=== PATIENT | female | born 1995 | race Two or more races ===

== ENCOUNTER → 2022-05-13 | Outpatient (CLI) | payer MEDICAID ==
[2022-05-13 11:20] LABS: Basophils # (auto) 0 10 ^3/uL (0-0.2); Basophils % (auto) 0.1 % (0.0-2.0); Eosinophils # (auto) 0.2 10 ^3/uL (0-0.8); Eosinophils % (auto) 2.6 % (0.0-7.0); Hemoglobin 10.9 g/dL (12.2-16.2); Lymphocytes # (auto) 1.9 10 ^3/uL (0.4-5.4); Lymphocytes % (auto) 20.9 % (10.0-50.0); Mean Corpuscular Hemoglobin 24.6 pg (28.0-32.0); Mean Corpuscular Hgb Conc. 32.1 g/dL (32.0-36.0); Mean Corpuscular Volume 76.5 fL (80.0-100.0); Monocytes # (auto) 0.4 10 ^3/uL (0-1.3); Monocytes % (auto) 4.8 % (0.0-12.0); Neutrophils # (auto) 6.4 10 ^3/uL (1.6-8.6); Neutrophils % (auto) 71.6 % (37.0-80.0); Nucleated Red Blood Cells % 0.2 %; Red Blood Cells 4.45 10^6/uL (4.0-5.20); White Blood Cell 8.9 10^3/uL (4.4-10.8)
[2022-05-14 07:06] LABS: RPR Non Reactive (Non Reactive)
== END | disposition home or self-care (01) ==
LOC: LAB 10:45
PROVIDERS: ATTEND Obstetrics & Gynecology
DX: Z34.80 Encounter for supervision of other normal pregnancy, unspecified trimester (principal)
CPT/HCPCS: 36415; 84112; 85025; 86592

== ENCOUNTER 2022-05-27 11:37 | Observation (INO) | payer MEDICAID ==
[2022-05-27 12:28] LABS: Basophils # (auto) 0 10 ^3/uL (0-0.2); Eosinophils # (auto) 0.2 10 ^3/uL (0-0.8); Hemoglobin 10.6 g/dL (12.2-16.2); Monocytes % (auto) 5.2 % (0.0-12.0); Red Cell Distribution Width 16.4 % (11.8-14.3)
[2022-05-27 12:30] LABS: Basophils % (auto) 0.2 % (0.0-2.0); Eosinophils % (auto) 2.5 % (0.0-7.0); Hematocrit 34.2 % (36.0-46.0); Lymphocytes # (auto) 1.7 10 ^3/uL (0.4-5.4); Lymphocytes % (auto) 20.1 % (10.0-50.0); Mean Corpuscular Hemoglobin 23.5 pg (28.0-32.0); Mean Corpuscular Volume 75.6 fL (80.0-100.0); Monocytes # (auto) 0.4 10 ^3/uL (0-1.3); Neutrophils # (auto) 6.2 10 ^3/uL (1.6-8.6); Nucleated Red Blood Cells % 0.1 %; Red Blood Cells 4.52 10^6/uL (4.0-5.20); White Blood Cell 8.7 10^3/uL (4.4-10.8)
[2022-05-27 12:47] LABS: Urine Bacteria MOD /hpf (None Seen); Urine Blood 3+ /uL (Negative); Urine Mucus FEW (None Seen); Urine Specific Gravity 1.029 (1.001-1.035); Urine WBC 44 /hpf (0 - 5)
[2022-05-27 12:48] LABS: Albumin 2.6 g/dL (3.4-5.0); Calcium 8.7 mg/dL (8.5-10.1); Potassium 3.9 mmol/L (3.5-5.1)
[2022-05-27 12:51] LABS: BUN/Creatinine Ratio 13.3; Bilirubin, Total 0.2 mg/dL (0.2-1.0); Total Protein 6.7 g/dL (6.4-8.2); Uric Acid 4.9 mg/dL (2.6-6.0)
[2022-05-27 13:00] LABS: Protein, Urine 42.9 mg/dL (0.0-11.9)
[2022-05-27] MEDS ORDERED: PREN-96 PO (13:21)
== END 2022-05-27 13:29 | disposition home or self-care (01) ==
LOC: LDRP 11:37
PROVIDERS: ADMIT Obstetrics & Gynecology; ATTEND Obstetrics & Gynecology
DX: O13.3 Gestational [pregnancy-induced] hypertension without significant proteinuria, third trimester (principal); Z3A.38 38 weeks gestation of pregnancy; Z79.899 Other long term (current) drug therapy
CPT/HCPCS: 36415; 59025; 80053; 81001; 81002; 82570; 84156; 84550; 85025; 94760; G0378

== ENCOUNTER 2022-05-28 06:17 | Inpatient (IN) | payer MEDICAID ==
[~2022-05-28] VITALS: Ht 157.5 cm; Wt 94.8 kg
[~2022-05-28 06:17] MED LIST: PREN-96 PO
[2022-05-28] MEDS ORDERED: BUTORPHANOL TARTRATE 2 MG/1 ML VIAL IV PRN ×2 (06:45)
[2022-05-28] MEDS ORDERED: PHISODERM TOP SOLN 240ML BTL TOP PRN (06:45)
[2022-05-28] MEDS ORDERED: WITCH HAZEL-GLYCERIN PAD TOP PRN (06:45)
[2022-05-28] MEDS ORDERED: LIDOCAINE 2%HCL (LOCAL ANESTH.) INJ 10ml MDV IJ PRN (06:45)
[2022-05-28] MEDS ORDERED: DERMOPLAST 60ML BOTTLE TOP PRN (06:45)
[2022-05-28] MEDS ORDERED: PROMETHAZINE HCL 25 MG/ML 1ML IV PRN (06:45)
[2022-05-28 07:18] LABS: Basophils # (auto) 0 10 ^3/uL (0-0.2); Eosinophils # (auto) 0.2 10 ^3/uL (0-0.8); Monocytes # (auto) 0.4 10 ^3/uL (0-1.3); Neutrophils # (auto) 5.9 10 ^3/uL (1.6-8.6)
[2022-05-28 07:20] LABS: Basophils % (auto) 0.2 % (0.0-2.0); Eosinophils % (auto) 2.8 % (0.0-7.0); Hematocrit 34.1 % (36.0-46.0); Hemoglobin 10.7 g/dL (12.2-16.2); Lymphocytes % (auto) 23.1 % (10.0-50.0); Mean Corpuscular Hemoglobin 23.8 pg (28.0-32.0); Mean Corpuscular Hgb Conc. 31.5 g/dL (32.0-36.0); Mean Corpuscular Volume 75.6 fL (80.0-100.0); Monocytes % (auto) 4.9 % (0.0-12.0); Red Blood Cells 4.51 10^6/uL (4.0-5.20); Red Cell Distribution Width 16.8 % (11.8-14.3); White Blood Cell 8.6 10^3/uL (4.4-10.8)
[2022-05-28 07:31] LABS: INR 0.91 (0.9-1.15); Partial Thromboplastin Time 28.2 sec (24.6-33.4)
[2022-05-28 07:40] LABS: Albumin 2.6 g/dL (3.4-5.0); Calcium 8.7 mg/dL (8.5-10.1); Potassium 3.7 mmol/L (3.5-5.1)
[2022-05-28] MEDS: LACTATED RINGER'S 1,000 ML IV SCH ×2 (07:40→16:17)
[2022-05-28 07:45] LABS: Bilirubin, Total 0.3 mg/dL (0.2-1.0); Total Protein 6.6 g/dL (6.4-8.2)
[2022-05-28 08:43] LABS: Urine Bacteria NONE SEEN /hpf (None Seen); Urine Blood Negative /uL (Negative); Urine Mucus FEW (None Seen); Urine Specific Gravity 1.025 (1.001-1.035); Urine WBC 16 /hpf (0 - 5)
[2022-05-28] MEDS: miSOPROStol 50 MCG per PRE-CUT 1/2 TAB PO PRN ×2 (08:49→16:28)
[2022-05-28 09:10] LABS: Alcohol, Urine < 3.0 mg/dL (0-10); Amphetamine Screen, Urine NEGATIVE (NEGATIVE); Barbiturate Scree,Urine NEGATIVE (NEGATIVE); Benzodiazephine Screen, Urine NEGATIVE (NEGATIVE); Cannabinoid Screen, Urine NEGATIVE (NEGATIVE); Cocaine Screen, Urine NEGATIVE (NEGATIVE); Opiate Scree,Urine NEGATIVE (NEGATIVE); Phencyclidine Screen, Urine NEGATIVE (NEGATIVE)
[2022-05-28] MEDS ORDERED: METHYLERGONOVINE MALEATE 0.2 MG/ML AMP IM ONE (16:45)
[2022-05-28] MEDS ORDERED: LACT. RINGERS/OXYTOCIN 20UNITS 500 ML IV ONE ×2 (16:45→17:15)
[2022-05-28] MEDS ORDERED: ceFAZolin 1GM/50ML 50 ML IV ONE (20:07)
[2022-05-28] MEDS ORDERED: TERBUTALINE SULFATE 1 MG/ML 1ML VIAL SC PRN (20:15)
[2022-05-28] MEDS ORDERED: LACT. RINGERS/OXYTOCIN 20UNITS 1,000 ML IV SCH (20:15)
[2022-05-29 07:00] VITALS: BP 141/80
[2022-05-29] MEDS ORDERED: ONDANSETRON ODT 4 MG TAB PO PRN (08:00)
[2022-05-29] MEDS ORDERED: ACETAMINOPHEN 325 MG TAB PO PRN (08:00)
[2022-05-29] MEDS: IBUPROFEN 600 MG TAB PO PRN ×2 (08:10→22:10)
[2022-05-29 11:00] VITALS: BP 127/84
[2022-05-29 15:00] VITALS: BP 137/77
[2022-05-29 19:30] VITALS: BP 135/63
[2022-05-29] MEDS ORDERED: DOCUSATE SOD 100 MG CAP PO SCH (22:00)
[2022-05-29 22:50] VITALS: BP 120/70
[2022-05-30 03:00] VITALS: BP 121/68
[2022-05-30] MEDS ORDERED: IBU600T PO (06:58)
[2022-05-30 07:00] VITALS: BP 144/70
[2022-05-30 11:00] VITALS: BP 142/63
[2022-05-30] MEDS ORDERED: MEASLES, MUMPS & RUBELLA VAC(MMRII) 0.5ML SC ONE (13:15)
[2022-05-30 14:30] VITALS: BP 135/75
== END 2022-05-30 14:45 | disposition home or self-care (01) | DRG 560 ==
LOC: LDRP 06:17
PROVIDERS: ADMIT Obstetrics & Gynecology; ATTEND Obstetrics & Gynecology
PROC: 10E0XZZ Delivery of Products of Conception, External Approach (ICD-10-PCS; principal; 2022-05-28)
PROC: 0KQM0ZZ Repair Perineum Muscle, Open Approach (ICD-10-PCS; 2022-05-28)
PROC: 3E0P7VZ Introduction of Hormone into Female Reproductive, Via Natural or Artificial Opening (ICD-10-PCS; 2022-05-28)
PROC: 3E0DXGC Introduction of Other Therapeutic Substance into Mouth and Pharynx, External Approach (ICD-10-PCS; 2022-05-28)
DX: O13.4 Gestational [pregnancy-induced] hypertension without significant proteinuria, complicating childbirth (principal); Z37.0 Single live birth; O14.94 Unspecified pre-eclampsia, complicating childbirth; Z3A.39 39 weeks gestation of pregnancy; O70.1 Second degree perineal laceration during delivery; Z20.822 Contact with and (suspected) exposure to COVID-19
CPT/HCPCS: 36415; 59409; 80053; 80307; 81001; 85025; 85610; 85730; 86592; 86850; 86900; 86901; 94760; 96360; 96361; 96365; 96366; 96372; G0378; J0690; J2001; J2590

== ENCOUNTER → 2024-03-01 | Outpatient (CLI) | payer MEDICAID ==
[2024-03-01 12:03] LABS: Basophils # (auto) 0 10 ^3/uL (0-0.2); Basophils % (auto) 0.2 % (0.0-2.0); Eosinophils # (auto) 0.3 10 ^3/uL (0-0.8); Eosinophils % (auto) 2.6 % (0.0-7.0); Hematocrit 32.6 % (36.0-46.0); Lymphocytes # (auto) 1.8 10 ^3/uL (0.4-5.4); Lymphocytes % (auto) 18.1 % (10.0-50.0); Mean Corpuscular Hgb Conc. 30.7 g/dL (32.0-36.0); Mean Corpuscular Volume 74.9 fL (80.0-100.0); Monocytes # (auto) 0.6 10 ^3/uL (0-1.3); Monocytes % (auto) 5.6 % (0.0-12.0); Neutrophils # (auto) 7.5 10 ^3/uL (1.6-8.6); Neutrophils % (auto) 73.5 % (37.0-80.0); Nucleated Red Blood Cells % 0.1 %; Red Blood Cells 4.35 10^6/uL (4.0-5.20); Red Cell Distribution Width 16.1 % (11.8-14.3); White Blood Cell 10.2 10^3/uL (4.4-10.8)
[2024-03-03 03:06] LABS: Chlamydia Trachomatis, NAA Negative (Negative); Neisseria gonorrhoeae, NAA Negative (Negative)
== END | disposition home or self-care (01) ==
LOC: LAB 11:04
PROVIDERS: ATTEND Obstetrics & Gynecology
DX: Z34.80 Encounter for supervision of other normal pregnancy, unspecified trimester (principal); Z72.51 High risk heterosexual behavior; Z3A.00 Weeks of gestation of pregnancy not specified
CPT/HCPCS: 36415; 85025; 86592

== ENCOUNTER → 2024-03-08 | Outpatient (CLI) | payer MEDICAID ==
[2024-03-09 10:07] LABS: Treponema Pallidum Ab LC Non Reactive (Non Reactive)
[2024-03-11 07:06] LABS: RPR Non Reactive (Non Reactive)
[2024-03-13 18:06] LABS: Treponema pallidum Ab (FTA-Ab) Non Reactive (Non Reactive)
== END | disposition home or self-care (01) ==
LOC: LAB 10:49
PROVIDERS: ATTEND Obstetrics & Gynecology
DX: Z34.80 Encounter for supervision of other normal pregnancy, unspecified trimester (principal); A53.0 Latent syphilis, unspecified as early or late; Z3A.00 Weeks of gestation of pregnancy not specified
CPT/HCPCS: 84112; 86592

== ENCOUNTER 2024-03-15 11:03 | Observation (INO) | payer MEDICAID ==
[2024-03-15 11:44] LABS: Protein, Urine < 6.0 mg/dL (0.0-11.9)
[2024-03-15 11:47] LABS: Creatinine, Urine 24.26 mg/dL (30.0-125.0); Urine Protein/Creatinine Ratio 0.25
[2024-03-15 11:55] LABS: Urine Bacteria FEW /hpf (None Seen); Urine Blood Negative /uL (Negative); Urine Clarity Clear (Clear); Urine Color Colorless (Yellow); Urine Protein, UAD Negative (Negative); Urine Specific Gravity 1.004 (1.001-1.035); Urine Urobilinogen Normal (Negative); Urine WBC 1 /hpf (0 - 5); Urine pH 6.5 (5.0-9.0)
[2024-03-15 12:00] LABS: Basophils # (auto) 0 10 ^3/uL (0-0.2); Basophils % (auto) 0.1 % (0.0-2.0); Eosinophils # (auto) 0.2 10 ^3/uL (0-0.8); Eosinophils % (auto) 2.5 % (0.0-7.0); Hematocrit 31.5 % (36.0-46.0); Lymphocytes # (auto) 1.9 10 ^3/uL (0.4-5.4); Lymphocytes % (auto) 22.1 % (10.0-50.0); Mean Corpuscular Hemoglobin 22.8 pg (28.0-32.0); Mean Corpuscular Hgb Conc. 31.6 g/dL (32.0-36.0); Mean Corpuscular Volume 72.1 fL (80.0-100.0); Monocytes # (auto) 0.5 10 ^3/uL (0-1.3); Monocytes % (auto) 5.4 % (0.0-12.0); Neutrophils # (auto) 6.1 10 ^3/uL (1.6-8.6); Neutrophils % (auto) 69.9 % (37.0-80.0); Nucleated Red Blood Cells % 0.1 %; Red Blood Cells 4.37 10^6/uL (4.0-5.20); Red Cell Distribution Width 16.7 % (11.8-14.3); White Blood Cell 8.7 10^3/uL (4.4-10.8)
[2024-03-15 12:06] LABS: Albumin 3.8 g/dL (3.2-4.8); Alkaline Phosphatase 159 U/L (46-116); Anion Gap 7 (5-15); Aspartate Aminotransferase 12 U/L (13-40); BUN/Creatinine Ratio 9.6 (10.0-20.0); Bilirubin, Total 0.3 mg/dL (0.2-1.0); Blood Urea Nitrogen 5 mg/dL (9-23); Calcium 8.9 mg/dL (8.5-10.1); Carbon Dioxide 22 mmol/L (20-30); Chloride 109 mmol/L (98-107); Glucose 81 mg/dL (74-106); Sodium 138 mmol/L (136-145); Total Protein 6.5 g/dL (5.7-8.2)
[2024-03-15 12:09] LABS: Alanine Aminotransferase < 9 U/L (7-40)
[2024-03-15 12:17] LABS: INR 0.95 (0.9-1.15); Partial Thromboplastin Time 26.6 SEC (24.5-34.5); Prothrombin Time 10.1 sec (9.3-11.8)
[2024-03-15 12:22] LABS: Uric Acid 4.9 mg/dL (3.1-7.8)
== END 2024-03-15 13:26 | disposition home or self-care (01) ==
LOC: UNDOADMOB 11:03 → LDRP 11:03
PROVIDERS: ADMIT Obstetrics & Gynecology; ATTEND Obstetrics & Gynecology
DX: Z36.89 Encounter for other specified antenatal screening (principal); Z3A.36 36 weeks gestation of pregnancy; Z86.2 Personal history of diseases of the blood and blood-forming organs and certain disorders involving the immune mechanism; Z79.899 Other long term (current) drug therapy
CPT/HCPCS: 36415; 59025; 76818; 80053; 81001; 81002; 82570; 84156; 84550; 85025; 85610; 85730; 94760; G0378

== ENCOUNTER 2024-03-17 09:05 | Observation (INO) | payer MEDICAID ==
[2024-03-17 09:53] LABS: Protein, Urine 16.6 mg/dL (0.0-11.9)
[2024-03-17 09:54] LABS: Urine Bacteria FEW /hpf (None Seen); Urine Blood Negative /uL (Negative); Urine Clarity Clear (Clear); Urine Color Light-Yellow (Yellow); Urine Hyaline Cast FEW /lpf (0 - 2); Urine Mucus FEW (None Seen); Urine Protein, UAD Negative (Negative); Urine Specific Gravity 1.016 (1.001-1.035); Urine Urobilinogen Normal (Negative); Urine WBC 9 /hpf (0 - 5); Urine pH 6.5 (5.0-9.0)
[2024-03-17 09:56] LABS: Creatinine, Urine 101.09 mg/dL (30.0-125.0); Urine Protein/Creatinine Ratio 0.16
[2024-03-17 11:20] LABS: 24 Hr. Total Protein, Urine 290.5 mg/24 Hr (<149.1); Protein, Urine 16.6 mg/dL (0.0-11.9)
== END 2024-03-17 11:39 | disposition home or self-care (01) ==
LOC: UNDOADMOB 09:05 → LDRP 09:05 → UNDODISOB 11:39
PROVIDERS: ADMIT Obstetrics & Gynecology; ATTEND Obstetrics & Gynecology
DX: O62.9 Abnormality of forces of labor, unspecified (principal); O26.893 Other specified pregnancy related conditions, third trimester; N89.8 Other specified noninflammatory disorders of vagina; Z3A.38 38 weeks gestation of pregnancy
CPT/HCPCS: 59025; 76818; 81001; 82570; 84156; 94760; G0378

== ENCOUNTER 2024-03-21 00:14 | Observation (INO) | payer MEDICAID | END 2024-03-21 01:25 | disposition home or self-care (01) | LOC: LDRP 00:14 | PROVIDERS: ADMIT Obstetrics & Gynecology; ATTEND Obstetrics & Gynecology | DX: O62.9 Abnormality of forces of labor, unspecified (principal); Z3A.38 38 weeks gestation of pregnancy | CPT/HCPCS: 59025; 81002; 94760; G0378 ==

== ENCOUNTER 2024-03-22 09:31 | Observation (INO) | payer MEDICAID | END 2024-03-22 19:18 | disposition home or self-care (01) | LOC: LDRP 17:15 | PROVIDERS: ADMIT Obstetrics & Gynecology; ATTEND Obstetrics & Gynecology | DX: O13.3 Gestational [pregnancy-induced] hypertension without significant proteinuria, third trimester (principal); Z3A.38 38 weeks gestation of pregnancy | CPT/HCPCS: 59025; 76818; 81002; 94760; G0378 ==

== ENCOUNTER 2024-03-25 16:15 | Observation (INO) | payer MEDICAID | END 2024-03-25 19:50 | disposition home or self-care (01) | LOC: LDRP 17:47 | PROVIDERS: ADMIT Obstetrics & Gynecology; ATTEND Obstetrics & Gynecology | DX: O26.893 Other specified pregnancy related conditions, third trimester (principal); M54.9 Dorsalgia, unspecified; Z3A.39 39 weeks gestation of pregnancy | CPT/HCPCS: 59025; 76818; 81002; 94760; G0378 ==

== ENCOUNTER 2024-03-28 11:57 | Observation (INO) | payer MEDICAID | END 2024-03-28 19:39 | disposition home or self-care (01) | LOC: LDRP 16:39 | PROVIDERS: ADMIT Obstetrics & Gynecology; ATTEND Obstetrics & Gynecology | DX: O26.893 Other specified pregnancy related conditions, third trimester (principal); M54.9 Dorsalgia, unspecified; Z3A.39 39 weeks gestation of pregnancy | CPT/HCPCS: 59025; 76818; 81002; 94760; G0378 ==

== ENCOUNTER 2024-03-29 10:48 | Inpatient (IN) | payer MEDICAID ==
[~2024-03-29] VITALS: Ht 160 cm; Wt 93.4 kg
[2024-03-29] MEDS ORDERED: PHISODERM TOP SOLN 240ML BTL TOP PRN (11:30)
[2024-03-29] MEDS: LACT. RINGERS/OXYTOCIN 20UNITS 1,000 ML IV SCH (11:30)
[2024-03-29] MEDS ORDERED: LIDOCAINE 2%HCL (LOCAL ANESTH.) INJ 20ML MDV IJ PRN (11:30)
[2024-03-29] MEDS ORDERED: TERBUTALINE SULFATE 1 MG/ML 1ML VIAL SC PRN (11:30)
[2024-03-29] MEDS ORDERED: DERMOPLAST 60ML BOTTLE TOP PRN (11:30)
[2024-03-29] MEDS ORDERED: WITCH HAZEL-GLYCERIN PAD TOP PRN (11:30)
[2024-03-29] MEDS: LACTATED RINGER'S 1,000 ML IV SCH (11:30)
[2024-03-29] MEDS ORDERED: BUTORPHANOL TARTRATE 2 MG/1 ML VIAL IV PRN ×2 (11:30)
[2024-03-29 11:31] LABS: Urine Bacteria None Seen /hpf (None Seen)
[2024-03-29 11:45] LABS: Urine Blood 1+ /uL (Negative); Urine Clarity Clear (Clear); Urine Color Light-Yellow (Yellow); Urine Protein, UAD Negative (Negative); Urine Specific Gravity 1.014 (1.001-1.035); Urine Urobilinogen Normal (Negative); Urine WBC 6 /hpf (0 - 5); Urine pH 6.5 (5.0-9.0)
[2024-03-29 11:56] LABS: Fern Testing Positive
[2024-03-29 12:02] LABS: Basophils # (auto) 0 10 ^3/uL (0-0.2); Eosinophils # (auto) 0.2 10 ^3/uL (0-0.8); Lymphocytes # (auto) 2.2 10 ^3/uL (0.4-5.4); Mean Corpuscular Hgb Conc. 31.3 g/dL (32.0-36.0); Monocytes # (auto) 0.5 10 ^3/uL (0-1.3); Neutrophils # (auto) 7.2 10 ^3/uL (1.6-8.6)
[2024-03-29 12:03] LABS: Basophils % (auto) 0.2 % (0.0-2.0); Eosinophils % (auto) 2.4 % (0.0-7.0); Hematocrit 33.5 % (36.0-46.0); Hemoglobin 10.5 g/dL (12.2-16.2); Lymphocytes % (auto) 21.8 % (10.0-50.0); Mean Corpuscular Hemoglobin 22.4 pg (28.0-32.0); Mean Corpuscular Volume 71.5 fL (80.0-100.0); Monocytes % (auto) 4.8 % (0.0-12.0); Neutrophils % (auto) 70.8 % (37.0-80.0); Nucleated Red Blood Cells % 0.1 %; Red Blood Cells 4.68 10^6/uL (4.0-5.20); Red Cell Distribution Width 17.4 % (11.8-14.3); White Blood Cell 10.2 10^3/uL (4.4-10.8)
[2024-03-29 12:18] LABS: Amphetamine Screen, Urine Neg (NEGATIVE); Barbiturate Scree,Urine Neg (NEGATIVE); Benzodiazephine Screen, Urine Neg (NEGATIVE); Cannabinoid Screen, Urine Neg (NEGATIVE); Cocaine Screen, Urine Neg (NEGATIVE); Opiate Scree,Urine Neg (NEGATIVE); Phencyclidine Screen, Urine Neg (NEGATIVE)
[2024-03-29 12:21] LABS: Alanine Aminotransferase 11 U/L (7-40); Alkaline Phosphatase 172 U/L (46-116); Anion Gap 9 (5-15); Aspartate Aminotransferase 19 U/L (13-40); Calcium 9.3 mg/dL (8.5-10.1); Carbon Dioxide 19 mmol/L (20-30); Chloride 109 mmol/L (98-107); Glucose 79 mg/dL (74-106); Potassium 4.3 mmol/L (3.5-5.1); Sodium 137 mmol/L (136-145)
[2024-03-29 12:22] LABS: Albumin 3.9 g/dL (3.2-4.8); Bilirubin, Total 0.3 mg/dL (0.2-1.0); Total Protein 6.7 g/dL (5.7-8.2)
[2024-03-29 12:26] LABS: INR 0.92 (0.9-1.15); Partial Thromboplastin Time 26.4 SEC (24.5-34.5); Prothrombin Time 9.8 sec (9.3-11.8)
[2024-03-29 12:28] LABS: BUN/Creatinine Ratio 9.6 (10.0-20.0); Blood Urea Nitrogen < 5 mg/dL (9-23)
[2024-03-29] MEDS ORDERED: ONDANSETRON ODT 4 MG TAB PO PRN (14:00)
[2024-03-29] MEDS: IBUPROFEN 600 MG TAB PO PRN (14:31)
[2024-03-29] MEDS: ceFAZolin 1GM/50ML 50 ML IV SCH (14:32)
[2024-03-29] MEDS: LACT. RINGERS/OXYTOCIN 20UNITS 500 ML IV ONE ×2 (14:48→14:49)
[2024-03-29 19:22] VITALS: BP 110/53; PULSE 77; RESP 16; TEMP 98.2; O2SAT 97
[2024-03-29] MEDS: ACETAMINOPHEN 325 MG TAB PO PRN (20:36)
[2024-03-29] MEDS: DOCUSATE SOD 100 MG CAP PO SCH (22:02)
[2024-03-29 22:45] VITALS: BP 131/49; PULSE 71; RESP 18; TEMP 98.1; O2SAT 98
[2024-03-30 03:15] VITALS: BP 128/86; PULSE 68; RESP 18; TEMP 98; O2SAT 97
[2024-03-30 07:00] VITALS: BP 130/79; PULSE 65; RESP 16; TEMP 98; O2SAT 99
[2024-03-30 11:11] VITALS: BP 133/64; PULSE 68; RESP 18; TEMP 98.1; O2SAT 99
[2024-03-30 15:00] VITALS: BP 128/83; PULSE 72; RESP 18; TEMP 98.3; O2SAT 98
[2024-03-30 15:20] VITALS: BP 128/83; PULSE 72; RESP 16; TEMP 98.3; O2SAT 98
== END 2024-03-30 15:20 | disposition home or self-care (01) | DRG 560 ==
LOC: LDRP 10:48 → OBSVTOIN 11:10 → LDRP 11:11
PROVIDERS: ADMIT Obstetrics & Gynecology; ATTEND Obstetrics & Gynecology
PROC: 10E0XZZ Delivery of Products of Conception, External Approach (ICD-10-PCS; principal; 2024-03-29)
PROC: 0KQM0ZZ Repair Perineum Muscle, Open Approach (ICD-10-PCS; 2024-03-29)
DX: O70.1 Second degree perineal laceration during delivery (principal); Z37.0 Single live birth; Z3A.39 39 weeks gestation of pregnancy
CPT/HCPCS: 36415; 59025; 59409; 80053; 80307; 81001; 81002; 84112; 85025; 85610; 85730; 86592; 86703; 86803; 86850; 86900; 86901; 87340; 94760; 94762; 96360; 96361; 96365; 96366; G0378; J2590